=== PATIENT | male | born 1990 | race Caucasian/White ===

== ENCOUNTER 2017-06-14 21:57 | Emergency (ER) | payer SELFPAY ==
[~2017-06-14] VITALS: Ht 177.8 cm; Wt 81.8 kg
[~2017-06-14 21:57] MED LIST: BACTRIM DS 8001 TAB PO; CEPHALEXIN500 M1 PO; LORTAB 5/500 501 TAB PO; MOTRIN800 MG PO; NO HOME MEDICATIONS; NORCO 325 MG-51 TAB PO; VICODIN 5/5001 UDTAB PO
[2017-06-14 22:03] VITALS: BP 126/48; PULSE 100; TEMP 97
[2017-06-14] MEDS ORDERED: BACTRIM DS 8001 TAB PO (22:45)
== END 2017-06-14 23:24 | disposition home or self-care (01) ==
LOC: COL.ER 21:57
DX: L03.012 Cellulitis of left finger (principal); Z86.14 Personal history of Methicillin resistant Staphylococcus aureus infection

== ENCOUNTER 2017-11-02 01:04 | Emergency (ER) | payer SELFPAY ==
[~2017-11-02] VITALS: Ht 177.8 cm; Wt 88.6 kg
[2017-11-02 01:12] VITALS: TEMP 98.8
[2017-11-02 01:59] LABS: BASO % 0.4 % (0.0-2.0); EOS % 0.4 % (0-4.0); GRAN # 7.1 (1.4-6.5); GRAN % 74.2 % (42.2-75.2); HEMATOCRIT 42.3 % (42.0-52.0); HEMOGLOBIN 14.4 g/dl (13.5-18.0); LYMPH # 1.4 (1.2-3.4); LYMPH % 14.7 % (20.0-51.0); MEAN CELL VOLUME 90 fl (80.0-100.0); MEAN CORPUSCULAR HEMOGLOBIN 31 pg (27.0-31.0); MEAN CORPUSCULAR HGB CONC 34 g/dl (33.0-37.0); MEAN PLATELET VOLUME 10.6 fl (7.4-10.4); MONO % 10.1 % (1.7-9.3); PLATELET COUNT 251 K/mm3 (130-400); RED BLOOD COUNT 4.71 M/mm3 (4.20-5.60); WHITE BLOOD COUNT 9.6 K/mm3 (4.8-10.8)
[2017-11-02 02:05] LABS: CALCIUM 9.6 mg/dL (8.4-10.2); CREATININE, serum 1.13 mg/dL (0.66-1.25); POTASSIUM 3.7 mmol/L (3.4-5.0)
[2017-11-02] MEDS ORDERED: BACTRIM DS 8001 TAB PO (03:09)
[2017-11-02] MEDS ORDERED: NORCO 325 MG-51 TAB PO (03:09)
[2017-11-02 03:54] VITALS: BP 142/103; PULSE 110
== END 2017-11-02 03:58 | disposition home or self-care (01) ==
LOC: COL.ER 01:04
PROVIDERS: Emergency Medicine
DX: L02.511 Cutaneous abscess of right hand (principal); B95.61 Methicillin susceptible Staphylococcus aureus infection as the cause of diseases classified elsewhere
CPT/HCPCS: J1170; J1885; J2300; J7030

== ENCOUNTER 2017-11-03 14:20 | Inpatient (IN) | payer OTHER ==
[~2017-11-03] VITALS: Ht 177.8 cm; Wt 76.2 kg
[2017-11-03] VITALS (8 sets, daily range): BP systolic 117–156; BP diastolic 66–92; PULSE 92–107; TEMP 98.1–98.3
[2017-11-03 15:51] LABS: BASO % 0.3 % (0.0-2.0); EOS # 0.1 (0.0-0.7); EOS % 0.5 % (0-4.0); GRAN # 10.8 (1.4-6.5); GRAN % 79.4 % (42.2-75.2); HEMATOCRIT 43.4 % (42.0-52.0); HEMOGLOBIN 15.1 g/dl (13.5-18.0); LYMPH # 1.6 (1.2-3.4); MEAN CELL VOLUME 89 fl (80.0-100.0); MEAN CORPUSCULAR HEMOGLOBIN 31 pg (27.0-31.0); MEAN CORPUSCULAR HGB CONC 35 g/dl (33.0-37.0); MEAN PLATELET VOLUME 10.4 fl (7.4-10.4); MONO % 7.5 % (1.7-9.3); PLATELET COUNT 252 K/mm3 (130-400); REDCELL DISTRIBUTION WIDTH-CV 12.3 % (11.5-14.5)
[2017-11-03 16:01] LABS: ALBUMIN 4.4 gm/dL (3.5-5.0); BILIRUBIN,TOTAL 0.5 mg/dL (0.0-1.0); CALCIUM 9.6 mg/dL (8.4-10.2); CREATININE, serum 0.99 mg/dL (0.66-1.25); POTASSIUM 4.3 mmol/L (3.4-5.0); TOTAL PROTEIN 8.3 gm/dL (6.4-8.2)
[2017-11-04 01:24] VITALS: BP 143/67; PULSE 108; TEMP 99.4
[2017-11-04 05:26] VITALS: BP 117/65; PULSE 84; TEMP 98.7
[2017-11-04 07:11] LABS: BASO % 0.3 % (0.0-2.0); EOS # 0.1 (0.0-0.7); EOS % 0.7 % (0-4.0); GRAN # 6.9 (1.4-6.5); HEMATOCRIT 40.9 % (42.0-52.0); HEMOGLOBIN 13.5 g/dl (13.5-18.0); LYMPH # 2.1 (1.2-3.4); LYMPH % 20.8 % (20.0-51.0); MEAN CELL VOLUME 93 fl (80.0-100.0); MEAN CORPUSCULAR HEMOGLOBIN 31 pg (27.0-31.0); MEAN CORPUSCULAR HGB CONC 33 g/dl (33.0-37.0); MEAN PLATELET VOLUME 11.1 fl (7.4-10.4); MONO # 0.8 (0.1-0.6); MONO % 7.9 % (1.7-9.3); PLATELET COUNT 248 K/mm3 (130-400); RED BLOOD COUNT 4.41 M/mm3 (4.20-5.60); REDCELL DISTRIBUTION WIDTH-CV 12.6 % (11.5-14.5)
[2017-11-04 07:22] LABS: CALCIUM 8.7 mg/dL (8.4-10.2); CREATININE, serum 0.95 mg/dL (0.66-1.25); MAGNESIUM 2.3 mg/dL (1.6-2.3); PHOSPHOROUS 3.7 mg/dL (2.5-4.5); POTASSIUM 4.3 mmol/L (3.4-5.0)
[2017-11-04 09:08] VITALS: BP 125/62; PULSE 97; TEMP 98.6
[2017-11-04 13:07] VITALS: BP 150/66; PULSE 106; TEMP 98.3
[2017-11-04 17:38] VITALS: BP 139/73; PULSE 101; TEMP 98.4
[2017-11-04 21:40] VITALS: BP 136/62; PULSE 98; TEMP 98.4
[2017-11-05] VITALS (7 sets, daily range): BP systolic 129–147; BP diastolic 64–83; PULSE 79–98; TEMP 98.2–98.5
[2017-11-06 02:08] VITALS: BP 146/75; PULSE 95; TEMP 98.2
[2017-11-06 05:15] VITALS: BP 142/62; PULSE 89; TEMP 97.4
[2017-11-06 10:02] VITALS: BP 136/73; PULSE 89; TEMP 98.4
[2017-11-06 13:19] VITALS: BP 134/64; PULSE 91; TEMP 97.7
[2017-11-06 17:05] VITALS: BP 138/70; PULSE 90; TEMP 98.5
[2017-11-06 22:16] VITALS: BP 153/67; PULSE 83; TEMP 98.5
[2017-11-07 02:24] VITALS: BP 144/82; PULSE 93; TEMP 98.1
[2017-11-07 06:59] VITALS: BP 146/75; PULSE 103; TEMP 97.4
[2017-11-07] MEDS ORDERED: PERCOCET 325 MG1 TA2 PO (08:56)
[2017-11-07 09:16] VITALS: BP 132/79; PULSE 85; TEMP 98.2
[2017-11-07 09:24] LABS: BASO # 0.1 (0.0-0.2); BASO % 0.7 % (0.0-2.0); EOS # 0.2 (0.0-0.7); EOS % 3.1 % (0-4.0); GRAN # 5.9 (1.4-6.5); GRAN % 79.3 % (42.2-75.2); HEMATOCRIT 45.1 % (42.0-52.0); HEMOGLOBIN 15.1 g/dl (13.5-18.0); LYMPH # 0.7 (1.2-3.4); MEAN CELL VOLUME 90 fl (80.0-100.0); MEAN CORPUSCULAR HEMOGLOBIN 30 pg (27.0-31.0); MEAN CORPUSCULAR HGB CONC 34 g/dl (33.0-37.0); MEAN PLATELET VOLUME 10.2 fl (7.4-10.4); MONO # 0.5 (0.1-0.6); MONO % 6.6 % (1.7-9.3); PLATELET COUNT 242 K/mm3 (130-400); REDCELL DISTRIBUTION WIDTH-CV 12.2 % (11.5-14.5)
[2017-11-07 09:33] LABS: BILIRUBIN,TOTAL 0.4 mg/dL (0.0-1.0); CALCIUM 9.6 mg/dL (8.4-10.2); CREATININE, serum 0.79 mg/dL (0.66-1.25); POTASSIUM 4.7 mmol/L (3.4-5.0); TOTAL PROTEIN 7.8 gm/dL (6.4-8.2)
[2017-11-07] MEDS ORDERED: CEPHALEXIN500 M1 PO (10:49)
[2017-11-07 13:41] VITALS: BP 130/72; PULSE 87; TEMP 98.3
== END 2017-11-07 14:59 | disposition home or self-care (01) | DRG 854 ==
LOC: COL.ER 14:20 → SURG 16:00
PROVIDERS: Family Medicine; Internal Medicine; Nurse Practitioner Family; Plastic Surgery
PROC: 0J9J0ZZ Drainage of Right Hand Subcutaneous Tissue and Fascia, Open Approach (ICD-10-PCS; principal; 2017-11-03 19:00)
DX: A41.01 Sepsis due to Methicillin susceptible Staphylococcus aureus (principal); E87.1 Hypo-osmolality and hyponatremia; L02.511 Cutaneous abscess of right hand; M65.841 Other synovitis and tenosynovitis, right hand; F41.9 Anxiety disorder, unspecified; F17.210 Nicotine dependence, cigarettes, uncomplicated
CPT/HCPCS: 99232-AI; 99233-AI; 99239; J0330; J0690; J0696; J1170; J2270; J2405; J2550; J2704; J3010; J3370; J3480; J7030; J7050

== ENCOUNTER 2019-08-20 00:58 | Emergency (ER) | payer SELFPAY ==
[~2019-08-20] VITALS: Ht 177.8 cm; Wt 81.8 kg
[~2019-08-20 00:58] MED LIST changes: +PERCOCET 325 MG1 TA2 PO
[2019-08-20 01:04] VITALS: BP 148/74; TEMP 98.5
[2019-08-20 02:00] VITALS: PULSE 90
== END 2019-08-20 02:00 | disposition home or self-care (01) ==
LOC: COL.ER 00:58
DX: S90.111A Contusion of right great toe without damage to nail, initial encounter (principal); W22.8XXA Striking against or struck by other objects, initial encounter; F17.210 Nicotine dependence, cigarettes, uncomplicated